=== PATIENT | female | born 1930 | race Caucasian/White ===

== ENCOUNTER → 2017-07-18 | Outpatient (CLI) | payer MEDICARE, OTHER ==
[2016-01-24 11:15] VITALS: BMI 30.3
[~2017-07-18] MED LIST: ACE3 PO; ACET500T68 PO; ASPI-1471 PO; ASPI-715 PO; ASPI-757 PO; ASPI81TA94 PO; ATR10 PO; CEP250 PO; CEPH250C37 PO; CEPH500T7 PO; CHOL4PAC2 PO; CIP500 PO; CIPR-212 PO; CIPR-215 PO; CIPR-344 PO; CLA500 PO; CLO75 PO; CRAN500C11 PO; CYA1000 PO; CYCL-277 PO; DICL100G39 TOP; DIV500 PO; ENOX60DI8 SQ; ERGO500037 PO; ESTR42.59 VG; EZE10 PO; EZET1TAB55 PO; FAM20 PO; FAMO20TA28 PO; FERR-1 PO; FERR325T24 PO; FURO-47 PO; GABA-549 PO; GEMF600T91 PO; GLI2 PO; GLIM2TAB43 PO; GLIM4TAB50 PO; GLY25 PO; HYDR-389 PO; IBU600 PO; LEV500 PO; LEVO25TA56 PO; LISI-1 PO; LOR5/325 PO; MELO-207 PO; METF-420 PO; METR-1 PO; MULT-865 PO; OMEP-218 PO; OMEP40CA79 PO; ONDA4TAB97 PO; OXYGEN INH; PHEN200T32 PO; PHENA200 PO; POLY17PO21 PO; PRA20 PO; PYRIDIUM; SPI25 PO; SPIR25TA78 PO; URI PO; VIT C; WAR25 PO; WAR5 PO; WARF-12 PO; WARF2.5T4 PO; [UNRECOGNIZED DRUG - OTHER] PO; [UNRECOGNIZED DRUG - REMARK]; glyberide PO
== END ==
LOC: LAB 11:21
PROVIDERS: ATTEND Family Medicine
DX: E11.9 Type 2 diabetes mellitus without complications (principal)
CPT/HCPCS: 36415; 83036

== ENCOUNTER → 2017-11-12 | Outpatient (CLI) | payer MEDICARE, OTHER ==
[2016-01-24 11:15] VITALS: BMI 30.3
[~2017-11-12] MED LIST changes: +METF-421 PO
== END ==
LOC: SPU 15:37
DX: N30.01 Acute cystitis with hematuria (principal)
CPT/HCPCS: 51701; 81001; 87088

== ENCOUNTER → 2017-11-13 | Outpatient (CLI) | payer MEDICARE, OTHER ==
[2016-01-24 11:15] VITALS: BMI 30.3
== END ==
LOC: LAB 15:44
PROVIDERS: ATTEND Family Medicine
DX: E11.9 Type 2 diabetes mellitus without complications (principal)
CPT/HCPCS: 83036

== ENCOUNTER → 2017-11-26 | Outpatient (CLI) | payer MEDICARE, OTHER ==
[2016-01-24 11:15] VITALS: BMI 30.3
== END ==
LOC: LAB 16:29
PROVIDERS: ATTEND Family Medicine
DX: B07.8 Other viral warts (principal)
CPT/HCPCS: 88305

== ENCOUNTER → 2018-03-24 | Outpatient (CLI) | payer MEDICARE, OTHER ==
[2016-01-24 11:15] VITALS: BMI 30.3
[~2018-03-24] MED LIST changes: -GEMF600T91 PO; +GEMF600T92 PO; -METF-421 PO; +METF-452 PO
[2018-03-24 09:32] LABS: PLATELET COUNT, AUTOMATED 172 K/uL (150-450)
--- NOTE | 2018-03-24 10:59 | RADIOLOGY IMAGING REPORT ---
FACILITY: [facility] - [place] PATIENT NAME: Romy Fofana : 1930 MR: [id number] V: [id number] EXAM DATE: ORDERING PHYSICIAN: CHRIS CAREY TECHNOLOGIST: Location: [facility] Patient: Romy Fofana : 1930 Visit/Account:[id number] Date of Sevice: 03/24/2018 Exam type: HIP RIGHT History: Right hip pain from fall two weeks ago, prior history of hip surgery Comparison: January 20, 2016. Findings: There is an intramedullary jc and screw transfixing an old intratrochanteric fracture of the right h ip. The fracture fragments appear unchanged in alignment. The hardware appears to be in good positi on. No evidence of acute fractures or dislocations seen. There are surgical clips in the right ingu inal region IMPRESSION: 1. Postsurgical changes from open reduction internal fixation of an old intratrochanteric fracture o f the right hip with no evidence of acute fracture or dislocation seen Report Dictated By: Maryann Caro MD at 03/24/2018 10:52 AM Report E-Signed By: Maryann Caro MD at 03/24/2018 10:55 AM WSN:[email or web address]
--- NOTE | 2018-03-24 11:02 | RADIOLOGY IMAGING REPORT ---
FACILITY: [facility] - [place] PATIENT NAME: Rmoy Fofana : 1930 MR: [id number] V: [id number] EXAM DATE: ORDERING PHYSICIAN: CHRIS CAREY TECHNOLOGIST: Location: [facility] [place] Patient: Romy Fofana : 1930 Visit/Account:[id number] Date of Sevice: 03/24/2018 Exam type: KNEE 3 VIEWS BILATERAL History: bilateral knee pain from fall two weeks ago Comparison: None. Findings: Three views of both knees were submitted there is no evidence of acute fracture or dislocation involv ing either knee. There are moderate degenerative changes involving the medial lateral and patellofem oral compartments of both knees. There is chondrocalcinosis in the lateral compartment of the right knee. Mild to moderate vascular calcifications are noted bilaterally IMPRESSION: 1. Tricompartmental degenerative changes of both knees although no evidence of acute fracture or dis location seen Report Dictated By: Maryann Caro MD at 03/24/2018 10:55 AM Report E-Signed By: Maryann Caro MD at 03/24/2018 10:58 AM WSN:[email or web address]
== END ==
LOC: LAB 08:42
PROVIDERS: ATTEND Family Medicine
DX: S72.143A Displaced intertrochanteric fracture of unspecified femur, initial encounter for closed fracture (principal); M19.90 Unspecified osteoarthritis, unspecified site; W19.XXXA Unspecified fall, initial encounter; Z98.890 Other specified postprocedural states; M25.559 Pain in unspecified hip; E53.8 Deficiency of other specified B group vitamins; E11.9 Type 2 diabetes mellitus without complications
CPT/HCPCS: 36415; 82040; 82247; 82310; 82374; 82435; 82565; 82607; 82947; 83036; 84075; 84132; 84155; 84295; 84450; 84460; 84520; 85025

== ENCOUNTER → 2018-07-21 | Outpatient (CLI) | payer MEDICARE, OTHER ==
[2016-01-24 11:15] VITALS: BMI 30.3
[~2018-07-21] MED LIST changes: +CIPR-345 PO; -GEMF600T92 PO; +GEMF600T96 PO; +POLY17PO11 PO; -POLY17PO21 PO
== END ==
LOC: LAB 14:26
PROVIDERS: ATTEND Family Medicine
DX: E11.9 Type 2 diabetes mellitus without complications (principal)
CPT/HCPCS: 36415; 82310; 82374; 82435; 82565; 82947; 83036; 84132; 84295; 84520

== ENCOUNTER → 2018-07-21 | Outpatient (CLI) | payer MEDICARE, OTHER ==
[2016-01-24 11:15] VITALS: BMI 30.3
== END ==
LOC: LAB 14:34
PROVIDERS: ATTEND Family Medicine
DX: Z02.9 Encounter for administrative examinations, unspecified (principal)

== ENCOUNTER → 2018-07-29 | Outpatient (CLI) | payer MEDICARE, OTHER ==
[2016-01-24 11:15] VITALS: BMI 30.3
== END ==
LOC: US 01:09
PROVIDERS: ATTEND Internal Medicine
DX: I34.0 Nonrheumatic mitral (valve) insufficiency (principal); Z95.4 Presence of other heart-valve replacement
CPT/HCPCS: 93306

== ENCOUNTER 2018-08-14 13:51 | Emergency (ER) | payer MEDICARE, OTHER ==
[2016-01-24 11:15] VITALS: Wt 53.1 kg
[2018-08-14] MEDS ORDERED: NS(*) 0.9% 500 ML BAG 500 ML IV ONE (14:10)
[2018-08-14] MEDS ORDERED: ONDANSETRON 4 MG/2 ML VIAL IVP ONE (14:10)
[2018-08-14] MEDS ORDERED: fentaNYL CITR 100 MCG/2 ML AMP IVP ONE ×3 (14:10→17:10)
[2018-08-14 14:52] LABS: PLATELET COUNT, AUTOMATED 227 K/uL (150-450)
[2018-08-14] MEDS ORDERED: DIPHTH/TETANUS/ACEL. PERTUSSIS IM ONLY ONE (15:00)
--- NOTE | 2018-08-14 15:07 | EKG ---
FACILITY: [facility] [place] PATIENT NAME: JATIN CURRY : [id number] MR: [id number] V: [id number] EXAM DATE: ORDERING PHYSICIAN: ANDREW BRUNSON TECHNOLOGIST: JUAN Hobbs Reason : FALL Blood Pressure : / mmHG Vent. Rate : 081 BPM Atrial Rate : 081 BPM P-R Int : 130 ms QRS Dur : 126 ms QT Int : 410 ms P-R-T Axes : 023 -53 007 degrees QTc Int : 476 ms Normal sinus rhythm Right bundle branch block Left anterior fascicular block Bifascicular block Abnormal ECG When compared with ECG of 13-SEP-2016 07:49, No significant change was found Confirmed by MERLIN GORDILLO ([id number]) on 08/15/2018 6:34:53 AM Referred By: BOY Confirmed By:MERLIN GORDILLO
--- NOTE | 2018-08-14 15:59 | RADIOLOGY IMAGING REPORT ---
FACILITY: [facility] PATIENT NAME: Romy Fofana : 1930 MR: [id number] V: [id number] EXAM DATE: ORDERING PHYSICIAN: ANDREW BRUNSON TECHNOLOGIST: Location: [facility] Patient: Romy Fofana : 1930 Visit/Account:[id number] Date of Sevice: 08/14/2018 Exam type: KNEE 3 VIEW LEFT History: Fall with shoulder and knee pain Comparison: April 03, 2018. Findings: Moderate degenerative changes involving the medial compartment of the left knee appears slightly more dense when compared the prior study. Moderate sternal changes of the patellofemoral compartment lef t knee appear relatively unchanged. Moderate joint changes involving the lateral compartment left kn ee appear relatively unchanged. There is no evidence of acute fracture or dislocation. There appear s to be a small suprapatellar effusion. IMPRESSION: 1. Tricompartmental degenerative changes of the left knee as described. No evidence of acute fracture or dislocation involving the left knee Report Dictated By: Maryann Caro MD at 08/14/2018 3:52 PM Report E-Signed By: Maryann Caro MD at 08/14/2018 3:54 PM WSN:[email or web address]
[2018-08-14 16:00] VITALS: BP 131/62
--- NOTE | 2018-08-14 16:00 | RADIOLOGY IMAGING REPORT ---
FACILITY: [facility] - [place] PATIENT NAME: Romy Fofana : 1930 MR: [id number] V: [id number] EXAM DATE: ORDERING PHYSICIAN: ANDREW BRUNSON TECHNOLOGIST: Location: [facility] Patient: Romy Fofana : 1930 Visit/Account:[id number] Date of Sevice: 08/14/2018 CT OF THE BRAIN WITHOUT CONTRAST HISTORY: Fall. PROCEDURE: 3.0 mm contiguous axial sections were performed through the brain. Sagittal and coronal r eformats were submitted. COMPARISON: None FINDINGS: BRAIN: Brain and intracranial structures: There is no mass lesion, hemorrhage or acute infarct. Extensive p eriventricular and deep white matter hypoattenuation is nonspecific but likely reflects chronic ische samuel change. Cavernous carotid atherosclerosis is extensive. Diffuse cerebral volume loss is moderat e. Orbits (included portions): Unremarkable. Scalp: Normal. Skull: Normal. Paranasal sinuses and mastoid air cells (included portions): Moderate opacification of the right maxi llary sinus. IMPRESSION: No evidence of acute intracranial abnormality chronic findings as noted. One of the following dose optimization techniques was utilized in the performance of this exam: Autom ated exposure control; adjustment of the mA and/or kV according to the patient's size; or use of an i terative reconstruction technique. Specific details can be referenced in the facility's radiology C T exam operational policy. Report Dictated By: Melanie Lyon MD at 08/14/2018 3:44 PM Report E-Signed By: Melanie Lyon MD at 08/14/2018 3:56 PM WSN:[email or web address]-CATHERINE
--- NOTE | 2018-08-14 16:00 | RADIOLOGY IMAGING REPORT ---
FACILITY: [facility] PATIENT NAME: Romy Fofana : 1930 MR: [id number] V: [id number] EXAM DATE: ORDERING PHYSICIAN: ANDREW BRUNSON TECHNOLOGIST: Location: [facility] [place] Patient: Romy Fofana : 1930 Visit/Account:[id number] Date of Sevice: 08/14/2018 Exam type: SHOULDER MIN 2 VIEWS LEFT History: Fall with pain Comparison: None. Findings: Two views the left shoulder demonstrates a comminuted fracture through the proximal left humeral shaf t with slight lateral displacement of the distal fracture fragment and slight impaction. A large ort hopedic staple is incidentally noted in the left humeral head. Pacemaker battery pack projects over the left upper thorax IMPRESSION: 1. Slightly comminuted fracture to the proximal left humeral shaft with slight lateral displacement of the distal fracture fragment and slight impaction Report Dictated By: Maryann Caro MD at 08/14/2018 3:54 PM Report E-Signed By: Maryann Caro MD at 08/14/2018 3:55 PM WSN:[email or web address]
--- NOTE | 2018-08-14 16:01 | RADIOLOGY IMAGING REPORT ---
FACILITY: [facility] [place] PATIENT NAME: Romy Fofana : 1930 MR: [id number] V: [id number] EXAM DATE: ORDERING PHYSICIAN: ALEXANDRIA HARPER TECHNOLOGIST: Location: [facility] [place] Patient: Romy Fofana : 1930 Visit/Account:[id number] Date of Sevice: 08/14/2018 Exam type: HUMERUS LEFT History: Fall with left shoulder pain Comparison: Today's left shoulder series. Findings: There is a slightly comminuted fracture through the proximal left humeral shaft with slight posterior lateral displacement distal fracture fragment and slight impaction. Extensive degenerative changes of the left glenohumeral joint are noted. A large orthopedic staple projects over the left humeral h ead. Pacemaker battery pack projects over the left upper thorax IMPRESSION: 1. Subtly comminuted fractures of the proximal left humeral shaft with slight posterior lateral disp lacement of the distal fracture fragment and slight impaction Report Dictated By: Maryann Caro MD at 08/14/2018 3:55 PM Report E-Signed By: Maryann Caro MD at 08/14/2018 3:56 PM WSN:[email or web address]
--- NOTE | 2018-08-14 16:17 | ER Report ---
History and Physical Hx. of Stated Complaint: [facility] Now has left arm pain. Pain 03/26 (ALEXANDRIA HARPER DO) Time Seen By MD: 13:58 (ANDREW BRUNSON MD) HPI/ROS CHIEF COMPLAINT: Left shoulder pain status post fall HISTORY OF PRESENT ILLNESS: Patient is an 87-year-old female who states that she tripped over the edge of a cardboard box landing on her left shoulder. The sh oulder was held and adduction in the fall occurred. She is complaining of pain over the proximal shoulder and has inability to raise the shoulder secondary to pain. She denies striking her head. She is on a baby aspirin she is on no other blood thinners. She also did strike her left knee and has an abrasion. Patient is unsure of her last tetanus status. REVIEW OF SYSTEMS: Respiratory: No cough, no dyspnea. Cardiovascular: No chest pain, no palpitations. Gastrointestinal: No vomiting, no abdominal pain. Musculoskeletal: Left shoulder pain, left knee pain (ANDREW BRUNSON MD) Allergies: Coded Allergies: Sulfa (Sulfonamide Antibiotics) (Verified Allergy, Intermediate, RASH, 08/14/18) ibuprofen (Verified Allergy, Mild, ITCHING, 08/14/18) atorvastatin (Verified Allergy, Unknown, 08/14/18) codeine (Verified Allergy, Unknown, 08/14/18) morphine (Verified Allergy, Unknown, NAUSEA/VOMITING, 08/14/18) oxycodone (Verified Allergy, Unknown, 08/14/18) simvastatin (Verified Allergy, Unknown, 08/14/18) tramadol (Verified Allergy, Unknown, 08/14/18) latex (Verified Adverse Reaction, Mild, Unknown, 08/14/18) cephalexin (Verified Adverse Reaction, Unknown, Nausea and Dizziness, 08/14/18) Home Meds Active Scripts Ondansetron 4 Mg Odt (ONDANSETRON 4 MG ODT) 4 Mg Tab.rapdis, 4 MG PO Q6-8H PRN for NAUSEA/VOMITING, #15 TAB Prov:ALEXANDRIA HARPER V DO 08/14/18 Tramadol Hcl (TRAMADOL HCL) 50 Mg Tablet, 50 MG PO Q6H PRN for PAIN, #20 TAB Prov:ALEXANDRIA HARPER V DO 08/14/18 Metformin Hcl (METFORMIN HCL) 1,000 Mg Tablet, 0.5 TAB PO BID, #180 TAB 4 Refi lls Prov:CHRIS CAREY MD 07/22/18 Diclofenac Sodium 1% Gel (VOLTAREN 1% GEL) 100 Gm Gel..gram., 2 GM TOP QID for 30 Days, #1 TUBE 4 Refills Prov:CHRIS CAREY MD 07/21/18 Estradiol (ESTRACE) 42.5 Gm Cream.appl, 42.5 GM VG 3XW for 90 Days, #1 BOX 1 Refill Prov:CHRIS CAREY MD 04/24/17 Reported Medications Ciprofloxacin 250 Mg (CIPROFLOXACIN 250 MG) 250 Mg Tablet, 1 TAB PO BID, TAB 04/21/18 Acetaminophen (TYLENOL EXTRA STRENGTH) 500 Mg Tablet, 1 TAB PO BID, CAP 06/06/17 Multivitamin (DAILY MULTIPLE VITAMIN) 1 Each Tablet, 1 TAB PO DAILY 04/24/17 Ferrous Sulfate (IRON) 325 Mg Tablet, 1 TAB PO DAILY 04/24/17 Aspirin (ASPIR 81) 81 Mg Tablet.dr, 1 TAB PO QDAY, TAB 04/17/17 Past Medical/Surgical History History of type II diabetes (ANDREW BRUNSON MD) Hx Smoking: Yes (SMOKED <1 PPD X 50+ YRS. QUIT 2008) Smoking Status: Former Smoker Hx Substance Use Disorder: No Hx Alcohol Use: No (LEROY,ALEXANDRIA V DO) Constitutional Vital Sign - Last 24 Hours 08/14/18 08/14/18 08/14/18 08/14/18 13:57 14:00 14:01 14:06 Temp 97.7 Pulse 86 94 87 Resp 20 B/P (MAP) 146/70 146/70 (95) Pulse Ox 93 92 94 O2 Delivery Room Air 08/14/18 08/14/18 08/14/18 08/14/18 14:11 14:16 14:21 14:26 Pulse 93 83 90 81 Pulse Ox 90 92 90 91 08/14/18 08/14/18 08/14/18 08/14/18 14:31 14:36 14:41 14:46 Pulse 85 87 79 175 Resp 17 17 23 Pulse Ox 90 91 83 08/14/18 08/14/18 08/14/18 08/14/18 14:51 14:56 15:00 15:01 Pulse 90 91 85 Resp 20 18 7 B/P (MAP) 132/57 (82) Pulse Ox 85 98 08/14/18 08/14/18 08/14/18 08/14/18 15:06 15:11 15:16 15:21 Pulse 79 87 86 86 Resp 20 13 10 19 Pulse Ox 97 95 93 94 08/14/18 08/14/18 08/14/18 08/14/18 15:26 15:51 15:56 16:00 Pulse ??? 87 Resp 20 23 B/P (MAP) 131/62 (85) Pulse Ox 81 83 08/14/18 08/14/18 08/14/18 08/14/18 16:01 16:06 16:11 16:16 Pulse 77 88 91 72 Resp 27 18 50 20 Pulse Ox 98 98 99 99 08/14/18 08/14/18 08/14/18 08/14/18 16:21 16:26 16:31 16:36 Pulse 93 89 90 93 Resp 31 23 21 24 08/14/18 08/14/18 08/14/18 08/14/18 16:41 16:46 16:51 16:56 Pulse 87 93 90 78 Resp 22 22 27 26 08/14/18 08/14/18 08/14/18 08/14/18 17:01 17:06 17:11 17:16 Pulse 90 91 90 90 Resp 18 15 26 23 08/14/18 17:21 Pulse 96 Resp 19 Intake and Output0 08/14/18 08/14/18 08/15/18 15:00 23:00 07:00 Intake Total 500 ml Balance 500 ml (ANDREW BRUNSON MD) Physical Exam General Appearance: The patient is alert, has no immediate need for airway protection and no current signs of toxicity. [ ] Eyes: Pupils equal and round no injection. Respiratory: Chest is non tender, lungs are clear to auscultation. Cardiac: regular rate and rhythm [ ] Gastrointestinal: Abdomen is soft and non tender, no masses, bowel sounds normal. Musculoskeletal: Neck: Neck is supple and non tender. Patient has pain to the left proximal shoulder. The shoulder is held in abduction. Patient has intact sensation to the hand. Examination of the Left hand reveals no acute deformity. The patient is able to give a thumbs up sign, is able to make an okay sign, and is able to AB duct the fingers. Sensation is intact over the dorsal 1st web space, the volar aspect of the 2nd finger, and the volar aspect of the 5th finger. Capillary refill is brisk. (ANDREW BRUNSON MD) Medical Decision Making Data Points Result Diagram: 08/14/18 1435 08/14/18 1435 Laboratory Hematology Test 08/14/18 14:35 Red Blood Count 4.23 M/uL (4.17-5.56) Mean Corpuscular Volume 97.9 fL (80.0-96.0) Mean Corpuscular Hemoglobin 32.3 pg (26.0-33.0) Mean Corpuscular Hemoglobin Concent 33.0 g/dL (32.0-36.0) Red Cell Distribution Width 14.5 % (11.5-14.5) Mean Platelet Volume 7.0 fL (7.2-11.1) Neutrophils (%) (Auto) 74.2 % (39.4-72.5) Lymphocytes (%) (Auto) 16.9 % (17.6-49.6) Monocytes (%) (Auto) 6.6 % (4.1-12.4) Eosinophils (%) (Auto) 1.7 % (0.4-6.7) Basophils (%) (Auto) 0.6 % (0.3-1.4) Nucleated RBC Relative Count (auto) 0.1 /100WBC Neutrophils # (Auto) 5.3 K/uL (2.0-7.4) Lymphocytes # (Auto) 1.2 K/uL (1.3-3.6) Monocytes # (Auto) 0.5 K/uL (0.3-1.0) Eosinophils # (Auto) 0.1 K/uL (0.0-0.5) Basophils # (Auto) 0.0 K/uL (0.0-0.1) Nucleated RBC Absolute Count (auto) 0.00 K/uL Sodium Level 139 mmol/L (137-145) Potassium Level 4.0 mmol/L (3.5-5.0) Chloride Level 104 mmol/L (98-107) Carbon Dioxide Level 20 mmol/L (22-31) Blood Urea Nitrogen 29 mg/dl (7-18) Creatinine 0.70 mg/dl (0.52-1.04) Glomerular Filtration Rate Calc > 60.0 Random Glucose 111 mg/dl (75-110) Calcium Level 9.1 mg/dl (8.4-10.2) Total Bilirubin 0.6 mg/dl (0.2-1.3) Aspartate Amino Transf (AST/SGOT) 43 U/L (0-35) Alanine Aminotransferase (ALT/SGPT) 20 U/L (0-56) Alkaline Phosphatase 98 U/L (0-126) Total Protein 7.1 g/dl (6.3-8.2) Albumin 4.3 g/dl (3.5-5.0) Chemistry Test 08/14/18 14:35 White Blood Count 7.1 k/uL (4.5-11.0) Red Blood Count 4.23 M/uL (4.17-5.56) Hemoglobin 13.7 g/dL (12.0-16.0) Hematocrit 41.4 % (34.0-47.0) Mean Corpuscular Volume 97.9 fL (80.0-96.0) Mean Corpuscular Hemoglobin 32.3 pg (26.0-33.0) Mean Corpuscular Hemoglobin Concent 33.0 g/dL (32.0-36.0) Red Cell Distribution Width 14.5 % (11.5-14.5) Platelet Count 227 K/uL (150-450) Mean Platelet Volume 7.0 fL (7.2-11.1) Neutrophils (%) (Auto) 74.2 % (39.4-72.5) Lymphocytes (%) (Auto) 16.9 % (17.6-49.6) Monocytes (%) (Auto) 6.6 % (4.1-12.4) Eosinophils (%) (Auto) 1.7 % (0.4-6.7) Basophils (%) (Auto) 0.6 % (0.3-1.4) Nucleated RBC Relative Count (auto) 0.1 /100WBC Neutrophils # (Auto) 5.3 K/uL (2.0-7.4) Lymphocytes # (Auto) 1.2 K/uL (1.3-3.6) Monocytes # (Auto) 0.5 K/uL (0.3-1.0) Eosinophils # (Auto) 0.1 K/uL (0.0-0.5) Basophils # (Auto) 0.0 K/uL (0.0-0.1) Nucleated RBC Absolute Count (auto) 0.00 K/uL Glomerular Filtration Rate Calc > 60.0 Calcium Level 9.1 mg/dl (8.4-10.2) Total Bilirubin 0.6 mg/dl (0.2-1.3) Aspartate Amino Transf (AST/SGOT) 43 U/L (0-35) Alanine Aminotransferase (ALT/SGPT) 20 U/L (0-56) Alkaline Phosphatase 98 U/L (0-126) Total Protein 7.1 g/dl (6.3-8.2) Albumin 4.3 g/dl (3.5-5.0) (ANDREW BRUNSON MD) EKG/Imaging Imaging FACILITY: [facility] [place] PATIENT NAME: Romy Fofana : 1930 MR: [id number] V: [id number] EXAM DATE: ORDERING PHYSICIAN: ANDREW BRUNSON TECHNOLOGIST: Location: [facility] [place] Patient: Romy Fofana : 1930 Visit/Account:[id number] Date of Sevice: 08/14/2018 CT OF THE BRAIN WITHOUT CONTRAST HISTORY: Fall. PROCEDURE: 3.0 mm contiguous axial sections were performed through the brain. Sagittal and coronal reformats were submitted. COMPARISON: None FINDINGS: BRAIN: Brain and intracranial structures: There is no mass lesion, hemorrhage or acute infarct. Extensive periventricular and deep white matter hypoattenuation is nonspecific but likely reflects chronic ischemic change. Cavernous carotid atherosclerosis is extensive. Diffuse cerebral volume loss is moderate. Orbits (included portions): Unremarkable. Scalp: Normal. Skull: Normal. Paranasal sinuses and mastoid air cells (included portions): Moderate opacification of the right maxillary sinus. IMPRESSION: No evidence of acute intracranial abnormality chronic findings as noted. One of the following dose optimization techniques was utilized in the performance of this exam: Automated exposure control; adjustment of the mA and/or kV according to the patient's size; or use of an iterative reconstruction technique. Specific details can be referenced in the facility's radiology CT exam operational policy. Report Dictated By: Melanie Lyon MD at 08/14/2018 3:44 PM Report E-Signed By: Melanie Lyon MD at 08/14/2018 3:56 PM WSN:[facility] FACILITY: [facility] [place] PATIENT NAME: Romy Fofana : 1930 MR: [id number] V: [id number] EXAM DATE: ORDERING PHYSICIAN: ALEXANDRIA HARPER TECHNOLOGIST: Location[place] [facility] [place] Patient: Romy Fofana : 1930 Visit/Account:[id number] Date of Sevice: 08/14/2018 Exam type: HUMERUS LEFT History: Fall with left shoulder pain Comparison: Today's left shoulder series. Findings: There is a slightly comminuted fracture through the proximal left humeral shaft with slight posterior lateral displacement distal fracture fragment and slight impaction. Extensive degenerative changes of the left glenohumeral joint are noted. A large orthopedic staple projects over the left humeral head. Pacemaker battery pack projects over the left upper thorax IMPRESSION: 1. Subtly comminuted fractures of the proximal left humeral shaft with slight posterior lateral displacement of the distal fracture fragment and slight impaction Report Dictated By: Maryann Caro MD at 08/14/2018 3:55 PM Report E-Signed By: Maryann Caro MD at 08/14/2018 3:56 PM WSN:AMICIVN FACILITY: [facility] [place] PATIENT NAME: Romy Fofana : 1930 MR: [id number] V: [id number] EXAM DATE: ORDERING PHYSICIAN: ANDREW BRUNSON TECHNOLOGIST: Location[place] [facility] [place] Patient: Romy Fofana : 1930 Visit/Account:[id number] Date of Sevice: 08/14/2018 Exam type: KNEE 3 VIEW LEFT History: Fall with shoulder and knee pain Comparison: April 03, 2018. Findings: Moderate degenerative changes involving the medial compartment of the left knee appears slightly more dense when compared the prior study. Moderate sternal changes of the patellofemoral compartment left knee appear relatively unchanged. Moderate joint changes involving the lateral compartment left knee appear relatively unchanged. There is no evidence of acute fracture or dislocation. There appears to be a small suprapatellar effusion. IMPRESSION: 1. Tricompartmental degenerative changes of the left knee as described. No evidence of acute fracture or dislocation involving the left knee Report Dictated By: Maryann Caro MD at 08/14/2018 3:52 PM Report E-Signed By: Maryann Caro MD at 08/14/2018 3:54 PM WSN:AMICIVN (ANDREW BRUNSON MD) ED Course/Re-evaluation ED Course 1610 Pt signed out pending her imaging. Pts ct of head is stable. Pts imaging of shoulder shows a proximal humerus fx. Her knee shows arthritis. Call out to orthopedics, Dr. Donovan to discuss case. Pt given a second dose of fentanyl and place in shoulder immobilizer. [address] Donovan. States pt should be placed in sling. Can see Bienz if he has room in office tomorrow or he can see the patient next week. 1700 spoke with pt and both her daughters (Sherry on the phone) and pt is able to be on tramadol if given a nausea medication. Her daughter will stay with her tonight. Decision to Disposition Date: Aug 14, 2018 Decision to Disposition Time: 16:17 (ALEXANDRIA HARPER DO) ED Course The patient signed out to Dr. Harper at 1500; awaiting results of imaging studies Decision to Disposition Date: Aug 14, 2018 Decision to Disposition Time: 17:00 (ANDREW BRUNSON MD) Depart Departure Latest Vital Signs Vital Signs Date Time Temp Pulse Resp B/P (MAP) Pulse Ox O2 Delivery O2 Flow Rate FiO2 08/14/18 17:21 96 19 08/14/18 16:16 99 08/14/18 16:00 131/62 (85) 08/14/18 13:57 97.7 Room Air (ANDREW BRUNSON MD) Impression: Primary Impression: Humeral head fracture Condition: Condition Unchanged Disposition: HOME OR SELF-CARE Referrals: CHRIS CAREY MD (PCP) CATRACHITA DONOVAN MD 2 Days Call tomorrow to arrange the next available appointment New Scripts Ondansetron 4 Mg Odt (ONDANSETRON 4 MG ODT) 4 Mg Tab.rapdis 4 MG PO Q6-8H PRN for NAUSEA/VOMITING, #15 TAB Prov: ALEXANDRIA HARPER DO 08/14/18 Tramadol Hcl (TRAMADOL HCL) 50 Mg Tablet 50 MG PO Q6H PRN for PAIN, #20 TAB Prov: ALEXANDRIA HARPER DO 08/14/18 Patient Instructions: Arm Fracture in Adults (ED) Additional Instructions: You broke your humerus (upper arm). Call Orthopedics tomorrow morning, 830am. I did speak with Dr. Donovan (orthopedist) who said he can see you next week or Dr. Hammond may be able to see you tomorrow. Keep your arm in the immoblizer. Continue your current medications. Ice to shoulder as needed for pain. Tramadol one every 6 hours as needed for severe pain Zofran one every 6 hours as needed for nausea. Problem Qualifiers Primary Impression: Humeral head fracture Encounter type: initial encounter Fracture type: closed Laterality: left Qualified Codes: S42.292A - Other displaced fracture of upper end of left humerus, initial encounter for closed fracture ALEXANDRIA HARPER V Aug 14, 2018 16:17 ANDREW BRUNSON MD Aug 15, 2018 07:10
[2018-08-14] MEDS ORDERED: ONDA4TAB9 PO (17:02)
[2018-08-14] MEDS ORDERED: TRAM-420 PO (17:02)
== END 2018-08-14 18:24 | disposition home or self-care (01) ==
LOC: ER 14:08
DX: S42.292A Other displaced fracture of upper end of left humerus, initial encounter for closed fracture (principal); I45.2 Bifascicular block; E11.9 Type 2 diabetes mellitus without complications; Z79.82 Long term (current) use of aspirin; F17.200 Nicotine dependence, unspecified, uncomplicated; W01.0XXA Fall on same level from slipping, tripping and stumbling without subsequent striking against object, initial encounter
CPT/HCPCS: 70450; 73030; 73060; 73562; 85025; 90471; 90715; 93005; 96361; 96374; 96375; 96376; 99284; J2405; J3010; J7040; L3982; 82040; 82247; 82310; 82374; 82435; 82565; 82947; 84075; 84132; 84155; 84295; 84450; 84460; 84520; A4565

== ENCOUNTER 2018-09-12 14:30 | Emergency (ER) | payer MEDICARE, OTHER ==
[2016-01-24 11:15] VITALS: Wt 53.1 kg
[~2018-09-12 14:30] MED LIST changes: +ONDA4TAB9 PO; +TRAM-420 PO
--- NOTE | 2018-09-12 14:35 | ER Report ---
History and Physical Time Seen By MD: 14:35 HPI/ROS CHIEF COMPLAINT: Left wrist pain HISTORY OF PRESENT ILLNESS: Patient is an 87-year-old female here with complaints of left ulnar side wrist pain which seemed to worsen over the past 1- 2 days. Patient reportedly fracture her humerus several weeks ago and is currently in a sling for support. Patient denies recent trauma to the wrist even though she has had a fall or 2 per patient and patient's family report. Patient does have some swelling on the ulnar aspect of the wrist and tenderness with range of motion testing. Patient is neurovascularly intact at time of evaluation with good capillary refill and perfusion. REVIEW OF SYSTEMS: Constitutional: No fever, no chills. Musculoskeletal: + left lateral ulnar sided wrist pain and swelling Skin: + ecchymosis of the left ulnar side of wrist Neurological: NV exam intact Allergies: Coded Allergies: Sulfa (Sulfonamide Antibiotics) (Verified Allergy, Intermediate, RASH, 08/14/18) ibuprofen (Verified Allergy, Mild, ITCHING, 08/14/18) atorvastatin (Verified Allergy, Unknown, 08/14/18) codeine (Verified Allergy, Unknown, 08/14/18) morphine (Verified Allergy, Unknown, NAUSEA/VOMITING, 08/14/18) oxycodone (Verified Allergy, Unknown, 08/14/18) simvastatin (Verified Allergy, Unknown, 08/14/18) tramadol (Verified Allergy, Unknown, 08/14/18) latex (Verified Adverse Reaction, Mild, Unknown, 08/14/18) cephalexin (Verified Adverse Reaction, Unknown, Nausea and Dizziness, 08/14/18) Home Meds Active Scripts Diclofenac Sodium 1% Gel (VOLTAREN 1% GEL) 100 Gm Gel..gram., 2 GM TOP QID for 30 Days, #1 TUBE 4 Refills Prov:CHRIS CAREY MD 08/21/18 Tramadol Hcl (TRAMADOL HCL) 50 Mg Tablet, 50 MG PO Q6H PRN for PAIN, #20 TAB Prov:ALEXANDRIA HARPER DO 08/14/18 Metformin Hcl (METFORMIN HCL) 1,000 Mg Tablet, 0.5 TAB PO BID, #180 TAB 4 Refills Prov:CHRIS CAREY MD 07/22/18 Estradiol (ESTRACE) 42.5 Gm Cream.appl, 42.5 GM VG 3XW for 90 Days, #1 BOX 1 Refill Prov:CHRIS CAREY MD 04/24/17 Reported Medications Ciprofloxacin 250 Mg (CIPROFLOXACIN 250 MG) 250 Mg Tablet, 1 TAB PO BID, TAB 04/21/18 Aspirin (ASPIR 81) 81 Mg Tablet.dr, 1 TAB PO QDAY, TAB 04/17/17 Discontinued Reported Medications Acetaminophen (TYLENOL EXTRA STRENGTH) 500 Mg Tablet, 1 TAB PO BID, CAP 06/06/17 Multivitamin (DAILY MULTIPLE VITAMIN) 1 Each Tablet, 1 TAB PO DAILY 04/24/17 Ferrous Sulfate (IRON) 325 Mg Tablet, 1 TAB PO DAILY 04/24/17 Discontinued Scripts Ondansetron 4 Mg Odt (ONDANSETRON 4 MG ODT) 4 Mg Tab.rapdis, 4 MG PO Q6-8H PRN for NAUSEA/VOMITING, #15 TAB Prov:ALEXANDRIA HARPER V DO 08/14/18 Hx Smoking: Yes (SMOKED <1 PPD X 50+ YRS. QUIT 2008) Smoking Status: Former Smoker Hx Substance Use Disorder: No Hx Alcohol Use: No Constitutional Vital Sign - Last 24 Hours 09/12/18 09/12/18 14:37 14:42 Temp 96.7 Pulse 84 Resp 20 B/P (MAP) 131/54 Pulse Ox 86 O2 Delivery Room Air O2 Flow Rate 1.5 Physical Exam General Appearance: The patient is alert, has no immediate need for airway protection and no signs of toxicity. NAD Neurological: NV intact distal to injury site Skin: + echymosis of the left lateral wrist [Musculoskeletal:] + left wrist pain on ulnar side of wrist DIFFERENTIAL DIAGNOSIS: After history and physical exam differential diagnosis was considered for fracture, contusion, sprain, arthritis Medical Decision Making EKG/Imaging Imaging PATIENT NAME: Romy Fofana : 1930 MR: [id number] V: [id number] EXAM DATE: ORDERING PHYSICIAN: EDD ANTOINE TECHNOLOGIST: Location: [facility] [place] Patient: Romy Fofana : 1930 Visit/Account:[id number] Date of Sevice: 09/12/2018 EXAMINATION: Left wrist series, 3 views 09/12/2018 2:50 PM HISTORY: Ulnar side swelling and pain. Prior humerus fracture. COMPARISON: None FINDINGS: Osteopenia. No fracture or other acute bony finding in the wrist. Articular relationships are well-preserved. Degenerative changes at the base of the thumb. Peripheral atherosclerotic calcifications are present. IMPRESSION: No acute bony abnormality. ED Course/Re-evaluation ED Course Patient is an 87-year-old female here with complaints of left ulnar-sided wrist pain, edema, ecchymosis with a recent history several weeks ago of a left-sided humerus fracture. Patient denies recent trauma to the wrist however she does report worsening pain over the course of last 24 hours. No acute fracture was identified on x-ray imaging. Patient has a brace at home for restabilization. Recommend PCP follow-up in the next 24-48 hours. Patient is neurovascularly intact at time of discharge. Decision to Disposition Date: Sep 12, 2018 Decision to Disposition Time: 15:44 Depart Departure Latest Vital Signs Vital Signs Date Time Temp Pulse Resp B/P (MAP) Pulse Ox O2 Delivery O2 Flow Rate FiO2 09/12/18 14:42 1.5 09/12/18 14:37 96.7 84 20 131/54 86 Room Air Impression: Primary Impression: Contusion of wrist, left Condition: Improved Disposition: HOME OR SELF-CARE Referrals: CHRIS CAREY MD (PCP) Patient Instructions: Contusion in Adults (ED) Additional Instructions: Please continue to use your wrist brace for stabilization. Please return immediately if you develop worsening pain, increased swelling, numbness or tingling, weakness. You may consider applying ice, taking NSAIDs, following up with orthopedics if symptoms do not improve. EDD ANTOINE DO Sep 12, 2018 14:35
--- NOTE | 2018-09-12 15:17 | RADIOLOGY IMAGING REPORT ---
FACILITY: [facility] [place] PATIENT NAME: Romy Fofana : 1930 MR: [id number] V: [id number] EXAM DATE: ORDERING PHYSICIAN: EDD ANTOINE TECHNOLOGIST: [place] [facility] [place] Romy Fofana : 1930 Visit/Account:[id number] Date of Sevice: 09/12/2018 EXAMINATION: Left wrist series, 3 views 09/12/2018 2:50 PM HISTORY: Ulnar side swelling and pain. Prior humerus fracture. COMPARISON: None FINDINGS: Osteopenia. No fracture or other acute bony finding in the wrist. Articular relationship s are well-preserved. Degenerative changes at the base of the thumb. Peripheral atherosclerotic césar cifications are present. IMPRESSION: No acute bony abnormality. Report Dictated By: William Tyler MD at 09/12/2018 3:11 PM Report E-Signed By: William Tyler MD at 09/12/2018 3:12 PM WSN:[email or web address]
[2018-09-12 16:00] VITALS: BP 114/48
== END 2018-09-12 20:53 | disposition home or self-care (01) ==
LOC: ER 14:41
DX: S60.212A Contusion of left wrist, initial encounter (principal)
CPT/HCPCS: 99283

== ENCOUNTER → 2018-10-13 | Outpatient (CLI) | payer MEDICARE, OTHER ==
[2016-01-24 11:15] VITALS: BMI 30.3
== END ==
LOC: LAB 15:19
PROVIDERS: ATTEND Family Medicine
DX: E11.9 Type 2 diabetes mellitus without complications (principal); M81.0 Age-related osteoporosis without current pathological fracture; E55.9 Vitamin D deficiency, unspecified
CPT/HCPCS: 36415; 82306; 83036

== ENCOUNTER → 2018-10-21 | Outpatient (CLI) | payer MEDICARE, OTHER ==
[2016-01-24 11:15] VITALS: BMI 30.3
[~2018-10-21] MED LIST changes: +ACET-2146 PO; +CALC500T6 PO; +CHOL200074 PO
== END ==
LOC: LAB 11:35
PROVIDERS: ATTEND Urology
DX: R39.9 Unspecified symptoms and signs involving the genitourinary system (principal); R32 Unspecified urinary incontinence; B96.20 Unspecified Escherichia coli [E. coli] as the cause of diseases classified elsewhere
CPT/HCPCS: 81001; 87088

== ENCOUNTER → 2018-10-28 | Outpatient (CLI) | payer MEDICARE, OTHER ==
[2016-01-24 11:15] VITALS: BMI 30.3
[~2018-10-28] MED LIST changes: +NITR-105 PO
--- NOTE | 2018-10-28 14:15 | RADIOLOGY IMAGING REPORT ---
FACILITY: [facility] PATIENT NAME: Romy Fofana : 1930 MR: [id number] V: [id number] EXAM DATE: ORDERING PHYSICIAN: RADHA SEN TECHNOLOGIST: Location: [facility] [place] Patient: Romy Fofana : 1930 Visit/Account:[id number] Date of Sevice: 10/28/2018 KIDNEYS HISTORY: urinary incontinence, uti symptoms EXAMINATION: Renal ultrasound COMPARISON: None. FINDINGS: Kidneys: Right kidney- right kidney measures 8.2 x 4.1 x 5.0 cm cm, normal parenchymal thickness and echogenic ity. Left kidney- left kidney measures 9 x 4.6 x 5.1 cm, normal parenchymal thickness and echogenicity. Uniform and symmetric blood flow in each kidney by Doppler ultrasound. Right resistive index is 0.69 . Left resistive index 0.72 Hydronephrosis: none. Bladder: Bladder with 133 mL. Post void with 19 mL. Bilateral ureteral jets visualized Abdominal aorta and IVC: patent by Doppler ultrasound. IMPRESSION: Negative ultrasound for acute renal pathology. Report Dictated By: Puneet Ochoa MD at 10/28/2018 1:50 PM Report E-Signed By: Puneet Ochoa MD at 10/28/2018 2:11 PM WSN:[email or web address]
== END ==
LOC: US 00:41
PROVIDERS: ATTEND Urology
DX: R39.9 Unspecified symptoms and signs involving the genitourinary system (principal); R32 Unspecified urinary incontinence
CPT/HCPCS: 76705